=== PATIENT | male | born 1995 | race Caucasian/White ===

== ENCOUNTER 2016-11-14 09:15 | Emergency (ER) | payer SELFPAY ==
[2016-11-14 09:40] VITALS: BMI 42.2
[2016-11-14 09:41] VITALS: BP 138/84; PULSE 92; TEMP 97.4
[2016-11-14 10:05] LABS: AUTOMATED BASOPHIL 0.3 % (0-2); AUTOMATED EOSINOPHIL 2.9 % (0-5); AUTOMATED LYMPH 33.2 % (17-44); AUTOMATED MONOCYTE 5.9 % (3-10); AUTOMATED NEUTROPHIL 57.7 % (45-76); MPV 6.8 fL (7.4-10.4)
[2016-11-14 10:16] LABS: LEUKOCYTES/URINE NEG (NEGATIVE); NITRITE/URINE NEG (NEGATIVE); RBC/URINE 0-2 (0-2); URINE OCCULT BLOOD 1+ (NEG/TRACE); WBC/URINE 0-2 (0-2)
[2016-11-14 10:23] LABS: BLOOD UREA NITROGEN 17 MG/DL (9-20); CALCIUM 9.7 MG/DL (8.4-10.2); CALCULATED OSMOLALITY 280 MOs/Kg (270-290); CHLORIDE 106 mEq/L (98-107); GLUCOSE 89 MG/DL (70-99); SODIUM LEVEL 145 mEq/L (137-146); TOTAL PROTEIN 8.2 G/DL (6.3-8.2)
== END 2016-11-14 12:39 | disposition left against medical advice (07) ==
LOC: ED 09:15
DX: R10.11 Right upper quadrant pain (principal); R11.0 Nausea; Z53.21 Procedure and treatment not carried out due to patient leaving prior to being seen by health care provider
CPT/HCPCS: 80053; 81001; 83690; 85025; 99281

== ENCOUNTER 2016-12-06 18:13 | Emergency (ER) | payer SELFPAY ==
[2016-12-06 18:40] VITALS: TEMP 98.4; BMI 41.9
--- NOTE | 2016-12-06 19:04 | EDPRACDOC ---
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 NEIGHBORS DOG BIT HIM WHILE CHECKING MAIL. DOG IS IN ANIMAL CONTROLS CUSTODY AT THIS TIME. Bite Location: Reports: Calf Bite Cause: Dog Symptoms: Reports: Bruising, Pain Bite Wound: Reports: Abrasion Animal Immunization Status: Unknown Pain Severity: Mild Shortness of Breath: None Pruritus Severity: None ED Past Medical History - History Reviewed Yes Nurses notes reviewed and agree except as marked - Patient Medical History Cardiac History: Reports: Heart Attack (not diagnosed, CP episode) Psychological History: Reports: Depression, Anxiety. Denies: Substance Use Disorder Surgical History: Reports: Appendectomy, Cholecystectomy, Hernia Surgery (left inguinal hernia 2008) - Family Medical History Reports: Hypertension (parents), Diabetes (parents). Denies: Cancer, Stroke, Cardiac Disorders - Social Medical History Smoking Status: Never smoker Social History: Denies: Barbiturate Use, Benzodiazipine Use, Substance Use Disorder EDM Review of Systems - Review of Systems ROS Negative Except as Marked: Yes All systems reviewed and were negative except as marked Constitutional: No Symptoms Reported Musculoskeletal: Leg Integumentary: Wound - Physical Exam Constitutional: Alert (Awake), No apparent distress Oriented to: Time, Person, Place Last recorded Vital Signs: Last Vital Signs Temp 98.4 F 12/06/16 18:37 Pulse 85 12/06/16 18:37 Resp 20 12/06/16 18:37 BP 141/102 H 12/06/16 18:37 Pulse Ox 97 12/06/16 18:37 Oxygen Pulse Oxygen Saturation 97 O2 Device Room Air Oxygen Flow Rate Fraction of Inspired Oxygen ( FIO2) - HEENT Head: Normal Eye Exam: Normal Neck: Normal, Denies Pain, Midline - Respiratory/Cardiovascular Respiratory: Normal - CTA Cardiovascular: Normal - GI Palpation: Normal Tenderness: Non tender - Musculoskeletal Back: Normal Extremities: Other (NOTED SMALL ABRASION WITH BRUISE TO RIGHT MEDIAL CALF;) - Integumentary Skin: Normal Lymphatics: Normal - Neurologic Cerebellar: Normal Mood Description: Normal Thought: Coherent Perception: Normal ED Bite Exam - Bite Exam Bite Location: Calf Wound: Abrasion, Puncture Involvement: Immediate Area Pain Severity: Mild Involved Limb Distal/Sensory Function: Normal Decision Time to Discharge: 19:02 - Departure Disposition: Home Condition: Good Final Diagnosis: Dog bite Instructions: Animal Bite (ED) Education/Counseling Given To: Patient Education/Counseling Given Regarding: Diagnosis, Treatment, Follow Up Referrals: Heather Choi NP [Primary Care Provider] - One Week Prescriptions: Cephalexin Monohydrate [Keflex] 500 mg PO Q6H #28 cap Meloxicam [Mobic] 7.5 mg PO BID #20 tab Additional Instructions: KEEP IN TOUCH WITH ANIMAL CONTROL.
[2016-12-06 19:12] VITALS: BP 147/95; PULSE 76
== END 2016-12-06 19:10 | disposition home or self-care (01) ==
LOC: EDMC 18:13
DX: S81.051A Open bite, right knee, initial encounter (principal); W54.0XXA Bitten by dog, initial encounter; Y93.89 Activity, other specified
CPT/HCPCS: 99282

== ENCOUNTER 2016-12-16 15:30 | Emergency (ER) | payer SELFPAY ==
[2016-12-16 15:55] VITALS: BP 158/70; PULSE 82; TEMP 98.1; BMI 42.3
--- NOTE | 2016-12-16 16:19 | DIRPT ---
CLINICAL DATA: Cough and congestion for 4 days. EXAM: CHEST 2 VIEW COMPARISON: 08/28/2016 FINDINGS: The heart size and mediastinal contours are within normal limits. Both lungs are clear. The visualized skeletal structures are unremarkable. IMPRESSION: No active cardiopulmonary disease. Electronically Signed By: Elvia Wright M.D. On: 12/16/2016 16:17
--- NOTE | 2016-12-16 16:34 | EDPRACDOC ---
- General Information Chief Complaint: Flu-Like Symptoms Stated Complaint: PRODUCTIVE COUGH FEVER Time Seen by Provider: 12/16/16 15:47 Information Source: Patient Mode Of Arrival: Car Home Medications: Home Medications Acetaminophen with Codeine [TYLENOL WITH CODEINE; [employer] with Codeine] 5 ml PO Q4-6H PRN #120 ml 12/16/16 Azithromycin [Zithromax] 250 mg PO DAILY #6 tablet 12/16/16 Duloxetine HCl [Cymbalta] 60 mg PO DAILY #30 cap 12/16/16 RX: Prednisone [Deltasone, Orasone] 2 tabs PO DAILY #20 tab 12/16/16 Allergies/Adverse Reactions: Allergies Allergy/AdvReac Type Severity Reaction Status Date / Time amoxicillin [Amoxicillin] Allergy Unknown Verified 12/16/16 16:01 Latex, Natural Rubber Allergy Rash-Locali Verified 12/16/16 16:01 zed - History of Present Illness Symptoms Started: 3-4 days HPI: PT PRESENTS TODAY WITH COUGH/CONGESTION, NASAL CONGESTION, POST-TUSSIVE VOMITING AND FEVER X 3 DAYS. DENIES ALBERT, EAR PAIN, CP, SHOB, ABD PAIN, DIARRHEA. ALSO NEEDS REFILL ON CYMBALTA. NO OTHER PMH/MEDS/SBI. NO DISTRESS. Symptoms: Reports: Cough, Fever, Nasal Symptoms, Sore Throat, Vomiting Recent Medications: Reports: None Relevant History Of: Reports: None Shortness of Breath: None Cough Frequency: Persistent Cough Description: Reports: Productive, Strong, Congested Rhinorrhea: Reports: None Ear Symptoms: Reports: None Associated Signs and Symptoms: Reports: Cough, Fever, Nasal Symptoms, Sore Throat, Vomiting ED Past Medical History - History Reviewed Yes Nurses notes reviewed and agree except as marked - Patient Medical History Cardiac History: Reports: Heart Attack (not diagnosed, CP episode) Psychological History: Reports: Anxiety. Denies: Depression, Substance Use Disorder Surgical History: Reports: Cholecystectomy, Hernia Surgery (left inguinal hernia 2008) - Family Medical History Reports: Hypertension (parents), Diabetes (parents). Denies: Cancer, Stroke, Cardiac Disorders - Social Medical History Smoking Status: Never smoker Social History: Denies: Barbiturate Use, Benzodiazipine Use, Substance Use Disorder EDM Review of Systems - Review of Systems ROS Negative Except as Marked: Yes All systems reviewed and were negative except as marked Constitutional: Fever Eyes: No Symptoms Reported Ears: No Symptoms Reported Throat: Pain Nose: Congestion Respiratory: Cough Cardiovascular: No Symptoms Reported Gastrointestinal: Vomiting Neurological: No Symptoms Reported Musculoskeletal: Chestwall Integumentary: No Symptoms Reported - Physical Exam Constitutional: Alert (Awake), No apparent distress Oriented to: Time, Person, Place Last recorded Vital Signs: Last Vital Signs Temp 98.1 F 12/16/16 15:54 Pulse 82 12/16/16 15:54 Resp 18 12/16/16 15:54 BP 158/70 12/16/16 15:54 Pulse Ox 97 12/16/16 15:54 Oxygen Pulse Oxygen Saturation 97 O2 Device Oxygen Flow Rate Fraction of Inspired Oxygen ( FIO2) - HEENT Head: Normal Eye Exam: Normal Oropharynx: Normal Tympanic Membrane: Normal ENT EAC: Normal Nose: No Symptoms Reported Neck: Normal, Denies Pain, Midline - Respiratory/Cardiovascular Respiratory: Normal - CTA Cardiovascular: Normal - GI Palpation: Normal Tenderness: Non tender - Musculoskeletal Back: Normal Extremities: Normal - Integumentary Skin: Normal Lymphatics: Normal - Neurologic Cerebellar: Normal Mood Description: Normal Thought: Coherent Perception: Normal Decision Time to Discharge: 16:32 - Departure Disposition: Home Condition: Good Final Diagnosis: Acute bronchitis Instructions: Acute Bronchitis (ED) Education/Counseling Given To: Patient Education/Counseling Given Regarding: Diagnosis, Treatment, Follow Up Referrals: Heather Choi GINGER FARMER [Primary Care Provider] - One Week Prescriptions: New Duloxetine HCl [Cymbalta] 60 mg PO DAILY #30 cap Acetaminophen with Codeine [TYLENOL WITH CODEINE; [employer] with Codeine] 5 ml PO Q4-6H PRN #120 ml PRN Reason: Pain Azithromycin [Zithromax] 250 mg PO DAILY #6 tablet RX: Prednisone [Deltasone, Orasone] 2 tabs PO DAILY #20 tab Additional Instructions: REST AND PLENTY OF FLUIDS. FOLLOW UP WITH PCP IN 2-3 DAYS IF NEEDED.
== END 2016-12-16 16:42 | disposition home or self-care (01) ==
LOC: EDMC 15:30
DX: J20.9 Acute bronchitis, unspecified (principal)
CPT/HCPCS: 71020; 99282